=== PATIENT | male | born 1980 | race Caucasian/White ===

== ENCOUNTER 2018-01-07 14:11 | Emergency (ER) | payer SELFPAY ==
[2018-01-07] MEDS: DEXAMETHASONE 10 MG/ML 1 ML INJ IM (15:39)
[2018-01-07] MEDS: KETOROLAC 30 MG INJ IM (15:40)
[2018-01-07] MEDS: METHOCARBAMOL 750 MG TAB PO (15:48)
== END 2018-01-07 16:53 | disposition home or self-care (01) ==
LOC: FTE 16:53
DX: M54.5 Low back pain (principal); F17.210 Nicotine dependence, cigarettes, uncomplicated
CPT/HCPCS: 96372; 99284-25